=== PATIENT | female | born 1970 | race Caucasian/White ===

== ENCOUNTER 2016-11-30 14:07 | Emergency (ER) | payer BC ==
[2016-11-30] MEDS ORDERED: Sodium Chloride 0.9% 1,000 ML IV ONE (14:25)
--- NOTE | 2016-11-30 14:26 | EDM.PDOC ---
ED HPI HEAD INJURY - General Chief Complaint: Head Injury Stated Complaint: HEAD INJURY Time Seen by Provider: 11/30/16 14:15 Source of Information: Reports: Patient History Limitations: Reports: No limitations - History of Present Illness INITIAL COMMENTS - FREE TEXT/NARRATIVE: History of present illness: [46-year-old female presenting status post acute slip and fall with direct blow to head. Patient now has some delayed speech intermittently, as well as delayed ability to follow commands. Patient recognizes this herself and has become quite emotional. Patient also indicated her mother had a history of hemorrhagic stroke] Review of systems: As per history of present illness and below otherwise all systems reviewed and negative. Past medical history: As per history of present illness and as reviewed below otherwise noncontributory. Surgical history: As per history of present illness and as reviewed below otherwise noncontributory. Social history: No reported history of drug or alcohol abuse. Family history: As per history of present illness and as reviewed below otherwise noncontributory. Physical exam: HEENT: Atraumatic, normocephalic, pupils reactive, negative for conjunctival pallor or scleral icterus, mucous membranes moist, throat clear, neck supple, nontender, trachea midline. Lungs: Clear to auscultation, breath sounds equal bilaterally, chest nontender. Heart: S1S2, regular, negative for clicks, rubs, or JVD. Abdomen: Soft, nondistended, nontender. Negative for masses or hepatosplenomegaly. Negative for costovertebral tenderness. Pelvis: Stable nontender. Genitourinary: Deferred. Rectal: Deferred. Extremities: Atraumatic, negative for cords or calf pain. Neurovascular unremarkable. Neuro: Awake, alert, oriented. Some minor delay and confusion but then able to follow. Cranial nerves II through XII unremarkable. Cerebellum unremarkable. Motor and sensory unremarkable throughout. Exam nonfocal. Secondary Neuro: Awake, alert, oriented. Cranial nerves II through XII unremarkable. Cerebellum unremarkable. Motor and sensory unremarkable throughout. Exam nonfocal. Diagnostics: [ CT of head (-) CBC, CMP] Therapeutics: [] Impression: [Concussion] Plan: [Followup with primary care provider] Definitive disposition and diagnosis as appropriate pending reevaluation and review of above. - Related Data Allergies/ADRs: Allergies Allergy/AdvReac Type Severity Reaction Status Date / Time No Known Allergies Allergy Verified 11/30/16 14:29 Home Meds: Home Meds . [No Known Home Meds] 11/30/16 [History] ED ROS GENERAL - Review of Systems Review Of Systems: See Below (See history of present illness) ED EXAM, HEAD INJURY - Physical Exam Exam: See Below (See history of present illness) Course - Vital Signs Last Recorded V/S: Last Vital Signs Temp 36.8 C 11/30/16 14:07 Pulse 82 11/30/16 14:07 Resp 18 11/30/16 14:07 BP 156/86 H 11/30/16 14:07 Pulse Ox 100 11/30/16 14:07 - Orders/Labs/Meds Orders: Active Orders 24 hr Category Date Time Status Head wo Cont [CT] Stat Exams 11/30/16 14:24 Taken Labs: Laboratory Tests 11/30/16 11/30/16 11/30/16 Range/Units 14:30 14:30 14:30 WBC 6.7 (5.0-10.0) 10^3/uL RBC 4.20 (4.00-5.50) 10^6/uL Hgb 12.8 (12.0-16.0) g/dL Hct 38.5 (37.0-47.0) % MCV 91.7 (82.0-94.0) fL MCH 30.5 (27.0-32.0) pg MCHC 33.2 (33.0-38.0) g/dL RDW Coeff of Amando 12.2 (11.0-15.0) % Plt Count 202 (150-400) 10^3/uL Neut % (Auto) 53.9 (35-85) % Lymph % (Auto) 35.6 (10-55) % Darke % (Auto) 8.2 (0-16) % Eos % (Auto) 2.2 (0-5) % Baso % (Auto) 0.1 (0-3) % Neut # 3.59 (1.80-7.00) 10^3/uL Lymph # 2.38 (1.00-4.80) 10^3/uL Darke # 0.55 (0.00-0.80) 10^3/uL Eos # 0.15 (0.00-0.45) 10^3/uL Baso # 0.01 10^3/uL PT 10.2 (9.7-12.3) SEC INR 0.96 (0.92-1.18) Sodium 140 (136-145) mEq/L Potassium 3.7 (3.5-5.0) mEq/L Chloride 104 (98-106) mEq/L Carbon Dioxide 26 (21-32) mmol/L BUN 11 (7-18) mg/dL Creatinine 0.8 (0.6-1.0) mg/dL Est Cr Clr Drug Dosing 90.53 mL/min Estimated GFR (MDRD) > 60 (>=60) mL/min Glucose 127 H (75-99) mg/dL Calcium 8.2 L (8.4-10.1) mg/dL Total Bilirubin 0.9 (0.0-1.0) mg/dL AST 14 L (15-37) U/L ALT 21 (12-78) U/L Alkaline Phosphatase 41 L (46-116) U/L Total Protein 7.2 (6.4-8.2) g/dL Albumin 3.6 (3.4-5.0) g/dL Meds: Medications Discontinued Medications Generic Name Dose Route Start Last Admin Trade Name Freq PRN Reason Stop Dose Admin Sodium Chloride 1,000 mls @ 999 mls/hr 11/30/16 14:25 11/30/16 14:40 Normal Saline IV 11/30/16 15:25 999 mls/hr STAT ONE Administration Departure - Departure Time of Disposition: 16:00 Disposition: Home, Self-Care 01 Condition: good Clinical Impression: Concussion with no loss of consciousness Instructions: Head Injury, Adult, [id number], Concussion, Adult, [id number] , Post-Concussion Syndrome, [id number] Forms: ED Department Discharge Additional Instructions: The following information is given to patients seen in the emergency department who are being discharged to home. This information is to outline your options for follow-up care. We provide all patients seen in our emergency department with a follow-up referral. The need for follow-up, as well as the timing and circumstances, are variable depending upon the specifics of your emergency department visit. If you don't have a primary care physician on staff, we will provide you with a referral. We always advise you to contact your personal physician following an emergency department visit to inform them of the circumstance of the visit and for follow-up with them and/or the need for any referrals to a consulting specialist. The emergency department will also refer you to a specialist when appropriate. This referral assures that you have the opportunity for follow-up care with a specialist. All of these measure are taken in an effort to provide you with optimal care, which includes your follow-up. Under all circumstances we always encourage you to contact your private physician who remains a resource for coordinating your care. When calling for follow-up care, please make the office aware that this follow-up is from your recent emergency room visit. If for any reason you are refused follow-up, please contact the [facility] Emergency Department at and asked to speak to the emergency department charge nurse. Followup with primary care provider one to 2 days Return to ED as needed as discussed - My Orders Last 24 Hours: My Active Orders 11/30/16 14:24 Head wo Cont [CT] Stat - Assessment/Plan Last 24 Hours: My Active Orders 11/30/16 14:24 Head wo Cont [CT] Stat
[2016-11-30 14:29] VITALS: BP 156/86
[2016-11-30 14:49] LABS: CHLORIDE,CL 104 mEq/L (98-106); SODIUM,NA 140 mEq/L (136-145)
== END 2016-11-30 16:15 | disposition home or self-care (01) ==
LOC: CC.ED 14:07
DX: S06.0X0A Concussion without loss of consciousness, initial encounter (principal); W01.0XXA Fall on same level from slipping, tripping and stumbling without subsequent striking against object, initial encounter
CPT/HCPCS: 36415; 70450; 80053; 85025; 85610; 96360; 99285; J7030